=== PATIENT | female | born 2005 | race Two or more races ===

== ENCOUNTER 2025-07-14 22:07 | Emergency (ER) | payer MEDICAID, SELFPAY ==
[2025-07-14 23:27] VITALS: BP 115/76; PULSE 98; RESP 18; TEMP 36.6; O2SAT 97
--- NOTE | 2025-07-14 23:39 | PC.NURSE ---
PT INFORMED ME THAT SHE WILL GO HOME AND SEE PMD.
== END 2025-07-14 23:40 | disposition left against medical advice (07) ==
LOC: SERX 23:46
PROVIDERS: Emergency Provider Emergency Medicine
DX: Z53.21 Procedure and treatment not carried out due to patient leaving prior to being seen by health care provider (principal)
CPT/HCPCS: 99281